=== PATIENT | male | born 1965 | race Caucasian/White ===

== ENCOUNTER 2018-02-06 10:09 | Day surgery (SDC) | payer OTHER ==
[2018-02-06] MEDS ORDERED: PROPOFOL 40 ML (11:54)
[2018-02-06] MEDS ORDERED: FENTAnyl 50 MCG/ML VIAL (11:55)
[2018-02-06] MEDS ORDERED: MIDAZOLAM 1 MG/ML 2 ML INJ (11:55)
== END 2018-02-06 12:31 | disposition home or self-care (01) ==
LOC: GIL 10:09
DX: Z12.11 Encounter for screening for malignant neoplasm of colon (principal); D12.6 Benign neoplasm of colon, unspecified; K57.90 Diverticulosis of intestine, part unspecified, without perforation or abscess without bleeding; K64.8 Other hemorrhoids; I10 Essential (primary) hypertension
CPT/HCPCS: 45380; 88305